=== PATIENT | female | born 1945 | race Caucasian/White ===

== ENCOUNTER 2017-01-12 09:56 | Inpatient (IN) | payer MEDICARE, OTHER ==
[~2017-01-12 09:56] MED LIST: ACETAMINOPHEN325 MG PO; ADVAIR 250-501 EACH IH; ALDACTONE25 MG PO; ANTIVERT25 MG PO; ANUSOL-HC25 MG PR; ASPIR 8181 MG PO; BUMETANIDE2 MG PO; CARBIDOPA-LEVO1 EAC6 PO; CLARITIN10 MG PO; CYCLOBENZAPRINE10 MG PO; DEMADEX20 MG PO; DIGOX125 MCG PO; ELIQUIS2.5 MG PO; FERROUS SULFAT140 MG PO; FERROUS SULFAT325 MG PO; FOLIC ACID1 MG PO; HYDROCODON-ACE1 EAC2 PO; HYDROCODON-ACE1 EAC4 PO; KLOR-CON-1010 MEQ PO; LACTULOSE20 GM/30 M PO; LANOXIN125 MCG PO; LASIX20 MG PO; LASIX40 MG PO; LIPITOR80 MG PO; MECLIZINE HCL25 MG PO; MEDROL4 M1 PO; NICOTINE TRANSD21 MG TD; NICOTINE TRANSD21 MG TOP; NICOTINE TRANSDE7 MG TOP; NITROGLYCERIN8.5 GM SL; NITROLINGUAL12 GM SL; NITROQUICK0.4 MG SL; OMEPRAZOLE20 MG PO; POLYETHYLENE GL17 GM PO; POTASSIUM CHLO10 ME1 PO; POTASSIUM CHLO10 MEQ PO; PREMARIN0.625 MG PO; PRILOSEC20 M1 PO; PRILOSEC20 MG PO; PROAIR HFA8.5 GM IH; SINEMET 25-1001 EACH PO; SPIRIVA18 MCG IH; SYNTHROID150 MCG PO; SYNTHROID175 MCG PO; TOPROL XL25 MG PO; TRIAMCINOLONE A15 G1 TOP; TRIAMCINOLONE A15 GM TOP; VENTOLIN HFA8 GM INH; XIFAXAN550 MG PO; ZOCOR20 MG PO; ZOCOR40 MG PO; ZOFRAN4 MG PO
--- NOTE | 2017-01-28 13:41 | NUR ---
1230: PT TO OR FOR OUTPT EGD; TAKEN PER OR STAFF BY BED. 1 UNIT PRBC COMPLETE. VSS. PT DROWSY, BUT AWARE AND AGREEABLE.
--- NOTE | 2017-01-29 13:03 | NUR ---
1050- PATIENT TAKEN TO OR FOR COLONOSCOPY VIA HOSPITAL BED. NO S/S OF DISTRESS. NO COMPLAINTS.
[2017-02-02] MEDS ORDERED: BUSPIRONE HCL10 MG PO (14:36)
[2017-02-02] MEDS ORDERED: ADVAIR 250-501 EACH IH (14:36)
[2017-02-02] MEDS ORDERED: SINEMET 25-1001 EACH PO (14:37)
[2017-02-02] MEDS ORDERED: LANOXIN125 MCG PO (14:37)
[2017-02-02] MEDS ORDERED: LASIX40 MG PO (14:38)
[2017-02-02] MEDS ORDERED: NORCO 7.5-3251 EACH PO (14:38)
[2017-02-02] MEDS ORDERED: SYNTHROID150 MCG PO (14:39)
[2017-02-02] MEDS ORDERED: K-DUR20 MEQ PO (14:39)
[2017-02-02] MEDS ORDERED: PROAIR HFA8.5 GM IH (14:40)
[2017-02-02] MEDS ORDERED: LACTULOSE20 GM/30 M PO (14:40)
[2017-02-02] MEDS ORDERED: NICOTINE PATCH1 EAC1 TD (14:40)
[2017-02-02] MEDS ORDERED: SPIRIVA18 MCG IH (14:41)
[2017-02-02] MEDS ORDERED: ZOCOR20 MG PO (14:41)
[2017-02-02] MEDS ORDERED: XIFAXAN550 MG PO (14:42)
[2017-02-02] MEDS ORDERED: TRIAMCINOLONE A80 G2 TOP (14:42)
[2017-02-02] MEDS ORDERED: NITROQUICK0.4 MG SL (14:42)
[2017-02-02] MEDS ORDERED: ALDACTONE100 MG PO (14:43)
[2017-02-02] MEDS ORDERED: ZOFRAN4 MG PO (14:43)
[2017-02-02] MEDS ORDERED: ACETAMINOPHEN325 MG PO (14:44)
[2017-02-02] MEDS ORDERED: PROTONIX40 MG PO (14:44)
[2017-02-02] MEDS ORDERED: ASPIRIN EC81 MG PO (14:45)
[2017-02-02] MEDS ORDERED: COREG3.125 MG PO (14:45)
== END 2017-02-02 15:45 | disposition home health service (06) | DRG 432 ==
LOC: SWI 09:56
PROVIDERS: ADMIT Internal Medicine
PROC: 30233N1 Transfusion of Nonautologous Red Blood Cells into Peripheral Vein, Percutaneous Approach (ICD-10-PCS; principal; 2017-01-23)
PROC: 30233N1 Transfusion of Nonautologous Red Blood Cells into Peripheral Vein, Percutaneous Approach (ICD-10-PCS; 2017-01-28)
DX: K74.60 Unspecified cirrhosis of liver (principal); I50.23 Acute on chronic systolic (congestive) heart failure; K29.71 Gastritis, unspecified, with bleeding; D62 Acute posthemorrhagic anemia; I13.0 Hypertensive heart and chronic kidney disease with heart failure and stage 1 through stage 4 chronic kidney disease, or unspecified chronic kidney disease; N18.4 Chronic kidney disease, stage 4 (severe); N17.9 Acute kidney failure, unspecified; J44.1 Chronic obstructive pulmonary disease with (acute) exacerbation; D61.818 Other pancytopenia; I27.81 Cor pulmonale (chronic); E03.9 Hypothyroidism, unspecified; I49.5 Sick sinus syndrome; I25.10 Atherosclerotic heart disease of native coronary artery without angina pectoris; Z95.1 Presence of aortocoronary bypass graft; F41.9 Anxiety disorder, unspecified; F32.9 Major depressive disorder, single episode, unspecified; F17.210 Nicotine dependence, cigarettes, uncomplicated; K21.9 Gastro-esophageal reflux disease without esophagitis; M54.5 Low back pain; E78.5 Hyperlipidemia, unspecified; G25.81 Restless legs syndrome; Z88.1 Allergy status to other antibiotic agents; Z98.84 Bariatric surgery status; Z88.4 Allergy status to anesthetic agent; Z90.49 Acquired absence of other specified parts of digestive tract; Z66 Do not resuscitate; Z82.49 Family history of ischemic heart disease and other diseases of the circulatory system; K72.90 Hepatic failure, unspecified without coma; I48.0 Paroxysmal atrial fibrillation; E87.6 Hypokalemia; D69.6 Thrombocytopenia, unspecified; Z79.899 Other long term (current) drug therapy
CPT/HCPCS: 94664; 97161-GP; 97162-GP; 97165; 97166; J1940; J2765; P9021; Q0139

== ENCOUNTER 2017-01-28 15:17 | Observation (INO) | payer MEDICARE, OTHER | END 2017-01-30 09:11 | disposition swing bed (61) | LOC: SDCH 15:17 → MED 16:30 | PROVIDERS: ADMIT Internal Medicine | DX: K31.1 Adult hypertrophic pyloric stenosis (principal); K29.70 Gastritis, unspecified, without bleeding; D64.9 Anemia, unspecified; K64.9 Unspecified hemorrhoids; I10 Essential (primary) hypertension; F17.210 Nicotine dependence, cigarettes, uncomplicated; Z98.84 Bariatric surgery status; I25.119 Atherosclerotic heart disease of native coronary artery with unspecified angina pectoris; E07.9 Disorder of thyroid, unspecified | CPT/HCPCS: 94664; 96374; 96375; 96376; C1726; G0378; J1940; J2704 ==